=== PATIENT | female | born 1980 | race Caucasian/White ===

== ENCOUNTER 2018-04-11 09:38 | Inpatient (IN) | payer BC, OTHER ==
[2018-04-11] MEDS ORDERED: Lactated Ringers 1000 ML Bag* 1,000 ML IV ONE (10:42)
[2018-04-11] MEDS ORDERED: Oxytocin in LR* 20 UNITS/1,000 ML BAG IVPB SCH (11:00)
[2018-04-11] MEDS ORDERED: Lactated Ringers 1000 ML Bag* 1,000 ML IV SCH ×2 (11:00→17:00)
--- NOTE | 2018-04-11 11:06 | HP ---
General Information - Reason for Visit Induction - General Information Maternal Age: 38 Grav: 2 Para: 1 SAB: 0 IEA: 0 Estimated Due Date: 04/06/18 Determined By: LMP Maternal Blood Type and Rh: A Negative - Results this Serology/RPR Result: Non-Reactive Rubella Result: Immune HBsAg Result: Negative HIV Result: Negative GBS Culture Result: Negative Past Medical History Delivery History: Hx Uncomplicated Vaginal Delivery Pertinent Past Medical History: Non-Contributory Pertinent Past Surgical History: None Pertinent Family History: Non-Contributory - Antepartal Records Antepartal Records: Reviewed, Uncomplicated Review of Systems Constitutional: Comfortable CV Complaint: No Respiratory: Shortness of Breath: No Gastrointestinal: No Nausea/Vomiting Genitourinary: No Dysuria, No Bleeding, No Leaking Fluid Musculoskeletal: No Complaint Neurological: No Headache Movement: Normal Exam Allergies/Adverse Reactions: Allergies No Known Allergies Allergy (Verified 11/11/12 10:16) WNL - Measurements Height: 5 ft 10 in Weight: 209 lb Weight in lbs: 209.041860 Body Mass Index (BMI): 29.9 Pre- Weight: 170 lb Weight Gained This : 39 lbs and 0 ozs - Exam Breast: Breast Exam Deferred Extremities: No Edema Heart: Normal Rhythm/Heart Sounds HEENT: No Significant Findings - Abdominal Exam Abdomen Exam: Non-Tender - Ultrasound/Biophysical Profile Ultrasound Status: Bedside Exam - Vertex Targeted Exam Findings Cervical Exam: 2cm - in office this week Presenting Part: Vertex Membrane Status: Intact EFM Findings - External Monitor Findings Baseline Heart Rate: 135 External Monitor Findings: Accelerations Present, No Pattern of Variable or Late Decelerations, Variability Moderate, Baseline Stable Contractions: Irregular Assessment/Plan - Assessment @ 40.5wks here for induction at term. GBS neg. - Plan Plan: Induction
[2018-04-11 11:10] LABS: ABS Basophils 0 10^3/ul (0-0.2); ABS Eosinophils 0.1 10^3/ul (0-0.6); ABS Lymphocytes 1.6 10^3/ul (1.0-4.8); ABS Monocytes 1.3 10^3/ul (0-0.8); ABS Neutrophils 8.6 10^3/ul (1.5-7.7); ABS Nucleated RBC 0 10^3/ul; Hematocrit 34 % (35-47); Hemoglobin 11.2 g/dl (12.0-16.0); Lymphocyte % 13.7 %; Mean Corpuscular HGB Conc 33 g/dl (31-36); Mean Corpuscular Hemoglobin 28 pg (27-31); Mean Corpuscular Volume 85 fL (80-97); Mean Platelet Volume 9.5 fL (7.4-10.4); Nucleated Red Blood Cells % 0; Platelet Count 218 10^3/ul (150-450); Red Blood Count 4.03 10^6/ul (4.00-5.40); Red Cell Distribution Width 14 % (10.5-15); White Blood Count 11.6 10^3/ul (3.5-10.8)
[2018-04-11] MEDS ORDERED: fentaNYL* 50 MCG/ML 2 ML VIAL (100 MCG VIAL) ONE (16:09)
[2018-04-11] MEDS ORDERED: OBEPIDURAL* 0 ML EPIDURAL ONE (16:09)
[2018-04-11] MEDS ORDERED: Phenylephrine IV* 40 MCG/ML 10 ML SYRINGE ONE (16:11)
[2018-04-11] MEDS ORDERED: Dibucaine 1% 28.35 GM TUBE PR PRN (16:59)
[2018-04-11] MEDS ORDERED: Glycerin ADULT SUPP PR PRN (16:59)
[2018-04-11] MEDS ORDERED: Witch Hazel PAD* JAR TOPICAL PRN (16:59)
[2018-04-11] MEDS: Ibuprofen TAB* 600 MG PO PRN ×2 (17:19→23:43)
[2018-04-11] MEDS ORDERED: Simethicone TAB* 80 MG TAB.CHEW PO SCH (17:30)
[2018-04-11] MEDS ORDERED: Ammonia Inhalant* 1 EA AMP ONE (18:42)
[2018-04-11] MEDS: Acetaminophen TAB* 325 MG PO PRN (19:30)
--- NOTE | 2018-04-11 19:53 | PROCNOTE ---
[facility] OB: Delivery Note - Delivery A Date of : 04/11/18 Time of : 16:31 [place] Sex: Male Weight at : 8 lb 4 oz Score 1 Minute: 9 Score 5 Minutes: 9 Gestational Age in Weeks and Days at Delivery: 40 Weeks and 5 Days Delivery Method: Spontaneous Vaginal Labor: Induced Did Patient attempt ?: N/A, No Previous Amniotic Fluid: Clear Anesthesia/Analgesia: None Delivered By: Yaa Baugh - Nursery Level of Nursery: Regular/Bedside - Perineum Perineal Injury: 1st Degree - Events Delivery Events of Note: Pitocin During Labor - Additional Delivery Notes Additional Delivery Notes: Pt arrived for induction of labor and was started on pitocin. After about 4hrs she underwent AROM. She progressed very quickly then to fully dilated and pushed 10min to deliver the infants head in OWEN position followed by the shoulders with one push. The baby was placed on mom`s abdomen. After more than 1 min the cord was clamped x2 and cut by dad. The placenta delivered with gentle cord traction and fundal massage. A small first degree lac was repaired with several [id number] sutures of 3-0 vicryl rapide. Fundus was firm with good hemostasis. Mom and baby stable.
[2018-04-11] MEDS: Docusate CAP* 100 MG PO SCH (21:34)
[2018-04-12] MEDS: Ibuprofen TAB* 600 MG PO PRN ×3 (05:29→20:00)
[2018-04-12 06:45] LABS: ABS Basophils 0 10^3/ul (0-0.2); ABS Eosinophils 0.1 10^3/ul (0-0.6); ABS Lymphocytes 2.1 10^3/ul (1.0-4.8); ABS Monocytes 1.5 10^3/ul (0-0.8); ABS Neutrophils 9.1 10^3/ul (1.5-7.7); ABS Nucleated RBC 0 10^3/ul; Eosinophil % 1.1 %; Hematocrit 31 % (35-47); Hemoglobin 10.4 g/dl (12.0-16.0); Lymphocyte % 16.6 %; Mean Corpuscular HGB Conc 33 g/dl (31-36); Mean Corpuscular Hemoglobin 28 pg (27-31); Mean Corpuscular Volume 85 fL (80-97); Mean Platelet Volume 9.3 fL (7.4-10.4); Nucleated Red Blood Cells % 0; Platelet Count 173 10^3/ul (150-450); Red Blood Count 3.68 10^6/ul (4.00-5.40); Red Cell Distribution Width 14 % (10.5-15); White Blood Count 12.9 10^3/ul (3.5-10.8)
[2018-04-12] MEDS: Acetaminophen TAB* 325 MG PO PRN ×3 (08:04→16:27)
[2018-04-12] MEDS ORDERED: Ferrous Gluconate TAB* 324 MG TAB PO SCH (09:00)
[2018-04-12] MEDS: Docusate CAP* 100 MG PO SCH ×3 (09:34→20:00)
[2018-04-13] MEDS: Acetaminophen TAB* 325 MG PO PRN (00:20)
[2018-04-13] MEDS: Ibuprofen TAB* 600 MG PO PRN ×2 (02:10→09:03)
[2018-04-13 08:27] VITALS: BP 118/64
[2018-04-13] MEDS: Docusate CAP* 100 MG PO SCH (09:03)
== END 2018-04-13 12:03 | disposition home or self-care (01) | DRG 560 ==
LOC: MCHOBOUT 09:38 → MCHOB 10:09
PROVIDERS: ADMIT Obstetrics & Gynecology; ATTEND Obstetrics & Gynecology
PROC: 10907ZC Drainage of Amniotic Fluid, Therapeutic from Products of Conception, Via Natural or Artificial Opening (ICD-10-PCS; principal; 2018-04-11)
PROC: 4A1HXCZ Monitoring of Products of Conception, Cardiac Rate, External Approach (ICD-10-PCS; 2018-04-11)
PROC: 3E033VJ Introduction of Other Hormone into Peripheral Vein, Percutaneous Approach (ICD-10-PCS; 2018-04-11)
PROC: 0HQ9XZZ Repair Perineum Skin, External Approach (ICD-10-PCS; 2018-04-11)
PROC: 10E0XZZ Delivery of Products of Conception, External Approach (ICD-10-PCS; 2018-04-11)
DX: O48.0 Post-term pregnancy (principal); Z37.0 Single live birth; Z3A.40 40 weeks gestation of pregnancy; O70.0 First degree perineal laceration during delivery; Z67.11 Type A blood, Rh negative
CPT/HCPCS: 36415; 85025; 86850; 86900; 86901; A9270-GY; J3010